=== PATIENT | female | born 1945 | race Caucasian/White ===

== ENCOUNTER 2023-06-29 09:37 | Observation (INO) ==
--- NOTE | 2023-06-29 09:53 | DR.HEADACH ---
HPI Time Seen Time Seen by Provider: 06/29/23 09:46 Complaint/Symptoms Chief Complaint:: c/o montes and weakness hx brain ca mets unknown type took oxycontin rx this am Dr Colby garner her medical condition Reviewed Nurses Notes Reviewed: Yes Source History Provided: Patient PMH PMH Past Medical History: Anxiety and Dyslipidemia Past Surgical History: Yes Surgical History: HIGH WORKER Surgery, Hysterectomy and Mastectomy Family History Family Medical History: Cancer and Hypertension Social History Do you use any recreational Drugs:: No ROS Review of Systems All Other Systems: Reviewed and Negative PE Vital Signs Vitals: Vital Signs Temperature 97.6 F Pulse Rate 76 Pulse Rate 77 Respiratory Rate 10 Respiratory Rate 10 Blood Pressure 162/81 O2 Sat by Pulse Oximetry 95 O2 Sat by Pulse Oximetry 97 General General Appearance: Lethargic ENT ENT Exam: Normal External Ear Exam Neck Neck Exam: Normal Inspection Respiratory Respiratory Exam: Normal Lung Sounds Bilat Cardiovascular Cardiovascular Exam: Regular Rate and Normal Rhythm Abdominal Exam Abdominal Exam: Normal Inspection Extremities Extremities Exam: Normal Inspection Psychiatric Psychiatric Exam: Flat Affect MDM Differential Diagnosis Differential Diagnosis: Considerations may include:: Migraine, Epidural Hemorrhage and Subdural Hemorrhage COURSE Consultation Called: 10:25 ROR Labs Reviewed 06/29/23 10:00 06/29/23 10:00 Laboratory: Sodium Cancelled 06/29/23 10:00 Corrected Sodium Cancelled 06/29/23 10:00 Potassium Cancelled 06/29/23 10:00 Chloride Cancelled 06/29/23 10:00 Carbon Dioxide Cancelled 06/29/23 10:00 BUN Cancelled 06/29/23 10:00 Creatinine Cancelled 06/29/23 10:00 Est GFR (MDRD) Af Amer Cancelled 06/29/23 10:00 Est GFR (MDRD) Non-Af Cancelled 06/29/23 10:00 Glucose Cancelled 06/29/23 10:00 Calcium Cancelled 06/29/23 10:00 Corrected Calcium Cancelled 06/29/23 10:00 Total Bilirubin Cancelled 06/29/23 10:00 AST Cancelled 06/29/23 10:00 ALT Cancelled 06/29/23 10:00 Alkaline Phosphatase Cancelled 06/29/23 10:00 Total Protein Cancelled 06/29/23 10:00 Albumin Cancelled 06/29/23 10:00 Globulin Cancelled 06/29/23 10:00 Albumin/Globulin Ratio Cancelled 06/29/23 10:00 XRAY X-ray Results: ct head EKG Rate: 75 [place]: Normal Rhythm: NSR Block: None ST: Normal Opioid Opioid Risk Tool Age (Rafael box if 16-45): No History of Preadolescent Sexual Abuse: No Total: 0 Total Score Risk Category: Low Risk Copyright: Lester KAY predicting aberrant behaviors Discharge Plan Discharge Plan Patient Disposition: HOME, SELF-CARE Condition: Stable Prescriptions: No Action methocarbamol 500 mg tablet 500 mg PO Q12H PRN (Reason: pain) dexamethasone 4 mg tablet 4 mg PO BID folic acid 1 mg tablet 1 mg PO QDAY oxycodone-acetaminophen 7.5-325 mg tablet 1 tab PO PRN PRN ondansetron 4 mg tablet,disintegrating 4 mg PO Q6H PRN escitalopram oxalate 20 mg tablet 20 mg PO DAILY Tagrisso 80 mg tablet 80 mg PO QDAY Health Concerns: Post Hospitalization: new medications and changes needed to prevent readmission or further decline. Pt educated and given instructions on all concerns. Plan of Treatment: Continue with present treatment and follow up plan. Pt is to keep follow up appointment as instructed and take medications as ordered. Follow ups/Referrals Follow ups/Referrals: AYLEEN HAMLIN [REFERRING] - 3 days Instructions Stand Alone Forms: Post Hospital Follow Up Care
--- NOTE | 2023-06-29 09:56 | EKG ---
Test Reason : montes Blood Pressure : */* mmHG Vent. Rate : 75 BPM Atrial Rate : 75 BPM P-R Int : 150 ms QRS Dur : 74 ms QT Int : 408 ms P-R-T Axes : 63 71 75 degrees QTc Int : 455 ms Normal sinus rhythm Normal ECG No previous ECGs available Confirmed by Adithya Rae MD ([id number]) on 06/29/2023 2:34:54 PM Referred By: Confirmed By: Adithya Rae MD
[2023-06-29] MEDS ORDERED: TORADOL 30 MG VIAL ONE ×2 (09:57→14:30)
[2023-06-29] MEDS: TORADOL 30 MG VIAL IVP ONE ×2 (10:02→14:35)
[2023-06-29] MEDS: TORADOL 30 MG VIAL IM ONE (10:03)
[2023-06-29] MEDS ORDERED: ZOFRAN INJ 4 MG VIAL ONE (10:12)
[2023-06-29] MEDS ORDERED: NS 1,000 ML IV 1,000 ML ONE (10:12)
[2023-06-29] MEDS: NS 1,000 ML IV 1,000 ML IV ONE ×2 (10:17→10:25)
[2023-06-29] MEDS: ZOFRAN INJ 4 MG VIAL IVP ONE ×2 (10:18→10:24)
[2023-06-29 10:24] LABS: BASOPHILS % (AUTO) 0.2 % (0.2-1.0); EOSINOPHILS % (AUTO) 0.3 % (0.9-2.9); HEMATOCRIT 34.5 % (36.0-47.0); HEMOGLOBIN 11.9 g/dL (12.0-16.0); LYMPHOCYTES # (AUTO) 0.4 X10^3/uL (1.3-2.9); MEAN CORPUSCULAR HEMOGLOBIN 30.5 pg (27.0-34.0); MEAN CORPUSCULAR HGB CONC 34.5 g/dL (33.0-35.0); MEAN CORPUSCULAR VOLUME 88.4 fL (80.0-100.0); MEAN PLATELET VOLUME 6.5 fL (7.4-11.0); MONOCYTES # (AUTO) 0.7 x10^3/uL (0.3-0.8); NEUTROPHILS # (AUTO) 2.3 x10^3/uL (2.2-4.8); NEUTROPHILS % (AUTO) 67.5 % (42.0-75.0); PLATELET COUNT 255 X10^3/uL (150.0-450.0); RED CELL DISTRIBUTION WIDTH 13.1 % (11.6-16.5); WHITE BLOOD COUNT 3.4 X10^3/uL (3.6-10.0)
--- NOTE | 2023-06-29 10:31 | CT ---
EXAM: BRAIN W/O CON HISTORY: Headache TECHNIQUE: Axial noncontrast images with coronal and sagittal reformats. Dose reduction procedures were used w ith mA/kv adjusted for body size. COMPARISON: None FINDINGS: Ventricles, cortical sulci, and other CSF spaces are enlarged consistent with generalized atrophy l ikely age related. There is decreased attenuation in the periventricular white matter suggestive of small-vessel vascular disease. Old lacunar infarcts are present in the basal ganglia bilaterally. T here are no focal areas of abnormal attenuation to suggest hemorrhage, mass lesion, recent CVA, or ex tra-axial fluid collection. Visualized sinuses are clear. The calvarium is intact. IMPRESSION: No acute intracranial abnormality identified Generalized atrophy likely age-related Small-vessel disease Old lacunar infarcts in the basal ganglia bilaterally. THIS IS AN ELECTRONICALLY VERIFIED FINAL REPORT 06/29/2023 10:28 AM - Electronically signed by Saud Claudio MD
[2023-06-29 10:33] LABS: ALANINE AMINOTRANSFERASE 35 Units/L (12-78); ALBUMIN 2.7 g/dL (3.4-5.0); ALKALINE PHOSPHATASE 73 Units/L (46-116); ASPARTATE AMINO TRANSFERASE 23 Units/L (15-37); BLOOD UREA NITROGEN 11 mg/dL (7-18); CALCIUM 8.1 mg/dL (8.5-10.1); CARBON DIOXIDE 29.5 mmol/L (21-32); CHLORIDE 93 mmol/L (98-107); COR CA(FOR HYPOALB) 9.1 mg/dL (8.5-10.1); CREATININE 0.45 mg/dL (0.55-1.02); GLUCOSE 96 mg/dL (65-99); POTASSIUM 3.8 mmol/L (3.5-5.1); SODIUM 129 mmol/L (136-145); TOTAL PROTEIN 6.4 g/dL (6.4-8.2); eGFR NON BLACK RACES > 60 (>60)
[2023-06-29 13:47] LABS: BILIRUBIN,URINE NEGATIVE (NEGATIVE); BLOOD/HEMOGLOBIN,URINE NEGATIVE (NEGATIVE); GLUCOSE, URINE NEGATIVE (NEGATIVE); KETONES,URINE 3+ (NEGATIVE); LEUKOCYTE ESTERASE ,URINE NEGATIVE (NEGATIVE); NITRITES,URINE NEGATIVE (NEGATIVE); PROTEIN,URINE NEGATIVE (NEGATIVE); UROBILINOGEN,URINE NORMAL (NORMAL)
[2023-06-29 13:51] LABS: APPEARANCE,URINE CLEAR (CLEAR); COLOR,URINE PALE YELLOW (YELLOW)
--- NOTE | 2023-06-29 14:56 | RAD ---
EXAM: CHEST, 1 VIEW HISTORY: infection; COMPARISON: None. FINDINGS: The trachea is slightly rightward deviated by an ectatic thoracic aorta. The cardiomediastinal silho uette is enlarged. Background interstitial opacities/densities are seen throughout the lung rhodes w hich can indicate a chronic bronchitis/bronchiolitis or associated COPD. However, abnormal and confl uent airspace opacities are seen within the right mid lung zone and right lower lobe which most likel y reflects a right-sided pneumonia. Malignancy is not completely excluded, however. This needs foll ow-up to complete resolution to exclude malignancy versus infection in this patient. The left lung s hows interstitial disease but is otherwise relatively clear without evidence for lobar infiltrates or large effusions. A small right basilar pleural effusion is suspected. No pneumothorax is identifie d. The bones are grossly stable. Given the multiplicity of these findings, follow-up with CT imaging of the chest with IV contrast may be beneficial to further characterize these multiple abnormalities in this patient. IMPRESSION: As above. THIS IS AN ELECTRONICALLY VERIFIED FINAL REPORT 06/29/2023 2:48 PM - Electronically signed by Bashir Castro
[2023-06-29 16:23] LABS: BASOPHILS % (AUTO) 0.3 % (0.2-1.0); EOSINOPHILS % (AUTO) 0.7 % (0.9-2.9); HEMATOCRIT 35.9 % (36.0-47.0); HEMOGLOBIN 12.1 g/dL (12.0-16.0); LYMPHOCYTES # (AUTO) 0.5 X10^3/uL (1.3-2.9); LYMPHOCYTES % (AUTO) 12.4 % (21.0-51.0); MEAN CORPUSCULAR HEMOGLOBIN 30.3 pg (27.0-34.0); MEAN CORPUSCULAR HGB CONC 33.8 g/dL (33.0-35.0); MEAN CORPUSCULAR VOLUME 89.7 fL (80.0-100.0); MEAN PLATELET VOLUME 6.4 fL (7.4-11.0); MONOCYTES # (AUTO) 0.8 x10^3/uL (0.3-0.8); MONOCYTES % (AUTO) 18.5 % (0.0-13.0); NEUTROPHILS # (AUTO) 2.9 x10^3/uL (2.2-4.8); NEUTROPHILS % (AUTO) 68.1 % (42.0-75.0); PLATELET COUNT 253 X10^3/uL (150.0-450.0); RED CELL DISTRIBUTION WIDTH 13.4 % (11.6-16.5); WHITE BLOOD COUNT 4.2 X10^3/uL (3.6-10.0)
[2023-06-29 17:21] LABS: ALANINE AMINOTRANSFERASE 32 Units/L (12-78); ALBUMIN 2.7 g/dL (3.4-5.0); ALKALINE PHOSPHATASE 68 Units/L (46-116); ASPARTATE AMINO TRANSFERASE 23 Units/L (15-37); BLOOD UREA NITROGEN 8 mg/dL (7-18); CALCIUM 7.9 mg/dL (8.5-10.1); CARBON DIOXIDE 25.7 mmol/L (21-32); CHLORIDE 96 mmol/L (98-107); COR CA(FOR HYPOALB) 8.9 mg/dL (8.5-10.1); CREATININE 0.42 mg/dL (0.55-1.02); GLUCOSE 88 mg/dL (65-99); POTASSIUM 3.7 mmol/L (3.5-5.1); SODIUM 130 mmol/L (136-145); TOTAL PROTEIN 6.2 g/dL (6.4-8.2); eGFR NON BLACK RACES > 60 (>60)
[2023-06-29] MEDS ORDERED: CONSULT PHARMACY - POTASSIUM & MAGNESIUM XX SCH (17:51)
[2023-06-29] MEDS: NS 1,000 ML IV 1,000 ML IV SCH (18:10)
[2023-06-29] MEDS: MAG-OX TAB PO SCH (21:05)
[2023-06-29] MEDS: K-DUR TAB 20 MEQ PO SCH (21:05)
[2023-06-29] MEDS: NORCO 5/325 MG TAB PO PRN (21:22)
[2023-06-30 06:15] LABS: BASOPHILS % (AUTO) 0.3 % (0.2-1.0); EOSINOPHILS # (AUTO) 0.1 x10^3/uL (0.0-0.2); EOSINOPHILS % (AUTO) 1.3 % (0.9-2.9); HEMATOCRIT 36.1 % (36.0-47.0); HEMOGLOBIN 12.2 g/dL (12.0-16.0); LYMPHOCYTES # (AUTO) 0.5 X10^3/uL (1.3-2.9); LYMPHOCYTES % (AUTO) 11.4 % (21.0-51.0); MEAN CORPUSCULAR HEMOGLOBIN 30.4 pg (27.0-34.0); MEAN CORPUSCULAR HGB CONC 33.8 g/dL (33.0-35.0); MEAN CORPUSCULAR VOLUME 89.8 fL (80.0-100.0); MEAN PLATELET VOLUME 6.6 fL (7.4-11.0); MONOCYTES # (AUTO) 0.8 x10^3/uL (0.3-0.8); MONOCYTES % (AUTO) 17.2 % (0.0-13.0); NEUTROPHILS # (AUTO) 3.2 x10^3/uL (2.2-4.8); NEUTROPHILS % (AUTO) 69.8 % (42.0-75.0); PLATELET COUNT 273 X10^3/uL (150.0-450.0); RED BLOOD COUNT 4.03 X10^6/uL (3.5-5.4); RED CELL DISTRIBUTION WIDTH 13.2 % (11.6-16.5); WHITE BLOOD COUNT 4.5 X10^3/uL (3.6-10.0)
[2023-06-30 06:28] LABS: ALANINE AMINOTRANSFERASE 34 Units/L (12-78); ALBUMIN 2.6 g/dL (3.4-5.0); ALKALINE PHOSPHATASE 72 Units/L (46-116); ASPARTATE AMINO TRANSFERASE 23 Units/L (15-37); BLOOD UREA NITROGEN 7 mg/dL (7-18); CALCIUM 7.8 mg/dL (8.5-10.1); CARBON DIOXIDE 26.7 mmol/L (21-32); CHLORIDE 97 mmol/L (98-107); COR CA(FOR HYPOALB) 8.9 mg/dL (8.5-10.1); CREATININE 0.48 mg/dL (0.55-1.02); GLUCOSE 86 mg/dL (65-99); SODIUM 132 mmol/L (136-145); TOTAL PROTEIN 6.1 g/dL (6.4-8.2); eGFR NON BLACK RACES > 60 (>60)
[2023-06-30] MEDS ORDERED: LEXAPRO ONE (10:42)
[2023-06-30] MEDS: DECADRON TAB PO SCH (10:48)
[2023-06-30] MEDS: TOPAMAX PO SCH (10:48)
[2023-06-30] MEDS: LINZESS PO ONE (10:48)
[2023-06-30] MEDS: LEXAPRO PO SCH (10:49)
[2023-06-30 12:36] VITALS: BMI 16.7
[2023-06-30] MEDS: ZOFRAN INJ 4 MG VIAL IVP PRN (13:12)
[2023-06-30] MEDS: ZOFRAN INJ 4 MG VIAL ONE (13:31)
[2023-06-30] MEDS: NORCO 5/325 MG TAB PO PRN (15:30)
[2023-06-30] MEDS: ALPRAZOLAM ODT PO PRN (20:17)
[2023-07-01 05:55] LABS: BASOPHILS % (AUTO) 0.3 % (0.2-1.0); EOSINOPHILS % (AUTO) 0.1 % (0.9-2.9); HEMOGLOBIN 12.4 g/dL (12.0-16.0); LYMPHOCYTES # (AUTO) 0.4 X10^3/uL (1.3-2.9); LYMPHOCYTES % (AUTO) 6.4 % (21.0-51.0); MEAN CORPUSCULAR HEMOGLOBIN 30.2 pg (27.0-34.0); MEAN CORPUSCULAR HGB CONC 33.6 g/dL (33.0-35.0); MEAN PLATELET VOLUME 6.6 fL (7.4-11.0); MONOCYTES # (AUTO) 0.4 x10^3/uL (0.3-0.8); MONOCYTES % (AUTO) 6.2 % (0.0-13.0); NEUTROPHILS # (AUTO) 5.6 x10^3/uL (2.2-4.8); PLATELET COUNT 262 X10^3/uL (150.0-450.0); RED BLOOD COUNT 4.12 X10^6/uL (3.5-5.4); RED CELL DISTRIBUTION WIDTH 13.3 % (11.6-16.5); WHITE BLOOD COUNT 6.4 X10^3/uL (3.6-10.0)
[2023-07-01 06:05] LABS: ALANINE AMINOTRANSFERASE 28 Units/L (12-78); ALBUMIN 2.6 g/dL (3.4-5.0); ALKALINE PHOSPHATASE 73 Units/L (46-116); ASPARTATE AMINO TRANSFERASE 19 Units/L (15-37); BLOOD UREA NITROGEN 5 mg/dL (7-18); CALCIUM 7.8 mg/dL (8.5-10.1); CHLORIDE 101 mmol/L (98-107); COR CA(FOR HYPOALB) 8.9 mg/dL (8.5-10.1); COR NA(FOR HYPERGLY) 132 mmol/L (136-145); CREATININE 0.43 mg/dL (0.55-1.02); GLUCOSE 113 mg/dL (65-99); POTASSIUM 4.2 mmol/L (3.5-5.1); SODIUM 132 mmol/L (136-145); TOTAL PROTEIN 6.3 g/dL (6.4-8.2); eGFR NON BLACK RACES > 60 (>60)
[2023-07-01] MEDS ORDERED: LEXAPRO ONE (09:06)
[2023-07-01 10:22] VITALS: RESP 18
[2023-07-01] MEDS: LOVENOX INJ 30 MG SYR SC SCH (12:19)
[2023-07-01 13:57] VITALS: BP 153/77; PULSE 84; TEMP 98.3; O2SAT 98
== END 2023-07-01 14:15 | disposition home or self-care (01) ==
LOC: SUPCPDRO → MED/SURG 09:37 → ER 09:37 → MED/SURG 17:08
PROVIDERS: ADMIT Obstetrics & Gynecology Obstetrics; ATTEND Obstetrics & Gynecology Obstetrics
DX: Z92.21 Personal history of antineoplastic chemotherapy; Z20.822 Contact with and (suspected) exposure to COVID-19; R51.9 Headache, unspecified; R53.1 Weakness; C79.31 Secondary malignant neoplasm of brain; E87.1 Hypo-osmolality and hyponatremia; E83.42 Hypomagnesemia; C34.90 Malignant neoplasm of unspecified part of unspecified bronchus or lung; Z66 Do not resuscitate; K59.09 Other constipation; I10 Essential (primary) hypertension